=== PATIENT | female | born 1935 | race Hispanic/Latino ===

== ENCOUNTER → 2017-11-09 | Outpatient (CLI) | payer MEDICARE ==
[~2017-11-09] MED LIST: Z TRIBENZOR PO; Z.0.ATENOLOL50 MG PO; Z.0.AZOR 10-40 MG1 E PO; Z.0.BENICAR HCT 401 PO; Z.0.ENALAPRIL MALEA2 PO; Z.0.GEMFIBROZIL600 M PO; Z.0.GLIPIZIDE ER5 MG PO; Z.0.LEVOTHYROXINE25 PO; Z.0.LISINOPRIL20 MG PO; Z.0.LOVASTATIN20 MG PO; Z.0.OMEPRAZOLE20 MG PO; Z.1.HYDROCHLOROTH12. PO
== END ==
LOC: MAMMO 10:32
PROVIDERS: ATTEND Internal Medicine
DX: Z12.31 Encounter for screening mammogram for malignant neoplasm of breast (principal)
CPT/HCPCS: 77067

== ENCOUNTER → 2018-11-26 | Outpatient (CLI) | payer MEDICARE ==
--- NOTE | 2018-11-29 10:22 | Diagnostic Imaging Report ---
Exam: Bone mineral density study. History: 83-year-old female Comparison: 11/23/2015 Discussion: Evaluation of the left hip and lumbar spine was performed utilizing DEXA Hologic bone densitometer. The study is technically adequate. The patient's fracture risk is compared to an age-matched control. Left femoral neck bone mineral density: 0.566 g/cm2, T-score is -2.6, Z-score is -0.1. Decreased 3.6% compared to prior exam. Lumbar spine total bone mineral density: 0.969 gm/cm2, T-score is -0.7, Z-score is 2.1. Increased 0.5% compared to prior exam. Impression: Bone mineralization by WHO Classification using T score is osteoporosis, fracture risk is high. <T score: NL = -1 or higher Osteopenia = -1 to -2.5 Osteoporosis = -2.5 or lower Z score: < - 1.5 concerning for path> Recommendations: Medical evaluation for secondary causes of low bone mineral density may be appropriate. Correlate clinically for the necessity and timing of the next bone mineral density study. National [employer]opor[employer] recommendations: Initiate therapy to reduce fracture risk in postmenopausal women with -BMD t-scores below -2 by central DXA with no risk factors -BMD t-scores below -1.5 by central DXA with one or more risk factors (first deg relative with hip fracture, prior personal fracture, low body weight, smoking) -A prior vertebral or hip fracture AACE (Clinical Endocrinology) recommends treating the following: Postmenopausal women who have osteoporosis as diagnosed by fragility fractures or t scores -2.5 or below Postmenopausal women who have risk factors (including fh of hip fracture, low body weight, smoking, risk of falling, high bone turnover, advancing age) and borderline low BMD T scores of -1.5 or below Adequate intake of calcium (at least 1200mg/day) and vitamin D (400-800 IU/day). Regular weight bearing and muscle - strengthening exercises Avoid smoking and excessive alcohol Signed by: Girma Abad on 11/29/2018 10:18 AM
== END ==
LOC: MAMMO 09:30
PROVIDERS: ATTEND Internal Medicine
DX: Z12.31 Encounter for screening mammogram for malignant neoplasm of breast (principal); M89.9 Disorder of bone, unspecified
CPT/HCPCS: 77067; 77080

== ENCOUNTER → 2019-11-28 | Outpatient (CLI) | payer MEDICARE | LOC: MAMMO 11:16 | PROVIDERS: ATTEND Internal Medicine | DX: Z12.31 Encounter for screening mammogram for malignant neoplasm of breast (principal) | CPT/HCPCS: 77067 ==

== ENCOUNTER → 2020-12-04 | Outpatient (CLI) | payer MEDICARE | LOC: MAMMO 11:08 | PROVIDERS: ATTEND Internal Medicine | DX: Z12.31 Encounter for screening mammogram for malignant neoplasm of breast (principal) | CPT/HCPCS: 77067 ==

== ENCOUNTER → 2021-12-09 | Outpatient (CLI) | payer MEDICARE | LOC: MAMMO 11:57 | PROVIDERS: ATTEND Internal Medicine | DX: Z12.31 Encounter for screening mammogram for malignant neoplasm of breast (principal); M85.88 Other specified disorders of bone density and structure, other site | CPT/HCPCS: 77067; 77080 ==

== ENCOUNTER → 2024-04-29 | Outpatient (REF) | payer MEDICARE | LOC: DX 11:37 | PROVIDERS: ATTEND Internal Medicine | DX: M81.0 Age-related osteoporosis without current pathological fracture (principal) | CPT/HCPCS: 77080 ==